=== PATIENT | female | born 1970 | race Caucasian/White ===

== ENCOUNTER 2018-06-03 17:02 | Emergency (ER) | payer OTHER ==
[~2018-06-03] VITALS: Ht 162.6 cm; Wt 90.9 kg
[~2018-06-03 17:02] MED LIST: CEPHALEXIN500 M1 PO; NO HOME MEDICATIONS
[2018-06-03 17:37] VITALS: TEMP 98.8
[2018-06-03 21:01] LABS: BASO % 0.3 % (0.0-2.0); EOS # 0.1 (0.0-0.7); EOS % 0.4 % (0-4.0); GRAN # 10.8 (1.4-6.5); GRAN % 80.7 % (42.2-75.2); HEMATOCRIT 40.7 % (37.0-47.0); HEMOGLOBIN 13.8 g/dl (12.5-16.0); LYMPH # 1.7 (1.2-3.4); LYMPH % 12.8 % (20.0-51.0); MEAN CELL VOLUME 98 fl (80.0-100.0); MEAN CORPUSCULAR HEMOGLOBIN 33 pg (27.0-31.0); MEAN CORPUSCULAR HGB CONC 34 g/dl (33.0-37.0); MONO # 0.7 (0.1-0.6); MONO % 5.4 % (1.7-9.3); PLATELET COUNT 316 K/mm3 (130-400); RED BLOOD COUNT 4.14 M/mm3 (4.10-5.30); REDCELL DISTRIBUTION WIDTH-CV 11.8 % (11.5-14.5)
[2018-06-03 21:12] LABS: ALANINE AMINOTRANSFERASE 28 U/L (9-52); ALBUMIN 4.2 gm/dL (3.5-5.0); ALKALINE PHOSPHATASE 92 U/L (50-136); ANION GAP 12 mmol/L (7-16); AST,SGOT 25 U/L (15-37); BILIRUBIN,TOTAL 0.5 mg/dL (0.0-1.0); BLOOD UREA NITROGEN 11 mg/dL (7-17); CALCIUM 8.7 mg/dL (8.4-10.2); CARBON DIOXIDE 22 mmol/L (22-30); CHLORIDE 100 mmol/L (98-107); CREATININE, serum 0.77 mg/dL (0.52-1.25); GLUCOSE 110 mg/dL (74-106); LIPASE 74 U/L (23-300); SODIUM 133 mmol/L (137-145); TOTAL PROTEIN 7.7 gm/dL (6.4-8.2)
[2018-06-03 21:41] LABS: TROPONIN-I < 0.012 ng/mL (0.000-0.035)
[2018-06-03] MEDS ORDERED: NORCO 325 MG-51 TAB PO (21:51)
[2018-06-03] MEDS ORDERED: DOXYCYCLINE HY100 MG PO (21:51)
[2018-06-03 22:03] VITALS: BP 107/61; PULSE 78
== END 2018-06-03 22:09 | disposition home or self-care (01) ==
LOC: COL.ER 17:02
PROVIDERS: Emergency Medicine
DX: L02.31 Cutaneous abscess of buttock (principal); F17.210 Nicotine dependence, cigarettes, uncomplicated
CPT/HCPCS: J3010

== ENCOUNTER → 2018-07-27 | Outpatient (CLI) | payer OTHER ==
[~2018-07-27] MED LIST changes: +DOXYCYCLINE HY100 MG PO; +NORCO 325 MG-51 TAB PO
== END ==
LOC: MC.RAD 11:14
DX: Z12.31 Encounter for screening mammogram for malignant neoplasm of breast (principal)

== ENCOUNTER 2019-04-08 09:37 | Emergency (ER) | payer OTHER ==
[~2019-04-08] VITALS: Ht 165.1 cm; Wt 90.9 kg
[2019-04-08 09:49] VITALS: TEMP 98
[2019-04-08] MEDS ORDERED: CELEXA40 MG PO (09:51)
[2019-04-08] MEDS ORDERED: PRIL40 PO (09:52)
[2019-04-08 10:38] LABS: BASO # 0.1 (0.0-0.2); EOS # 0.1 (0.0-0.7); GRAN # 3.7 (1.4-6.5); GRAN % 56.1 % (42.2-75.2); HEMATOCRIT 41.5 % (37.0-47.0); HEMOGLOBIN 14.3 g/dl (12.5-16.0); LYMPH # 2.4 (1.2-3.4); LYMPH % 35.2 % (20.0-51.0); MEAN CELL VOLUME 99 fl (80.0-100.0); MEAN CORPUSCULAR HEMOGLOBIN 34 pg (27.0-31.0); MEAN CORPUSCULAR HGB CONC 35 g/dl (33.0-37.0); MEAN PLATELET VOLUME 9.3 fl (7.4-10.4); MONO # 0.4 (0.1-0.6); MONO % 6.3 % (1.7-9.3); PLATELET COUNT 261 K/mm3 (130-400); REDCELL DISTRIBUTION WIDTH-CV 11.7 % (11.5-14.5)
[2019-04-08 10:51] LABS: ALANINE AMINOTRANSFERASE 24 U/L (9-52); ALBUMIN 4.3 gm/dL (3.5-5.0); ALKALINE PHOSPHATASE 100 U/L (50-136); ANION GAP 9 mmol/L (7-16); AST,SGOT 31 U/L (15-37); BILIRUBIN,TOTAL 0.4 mg/dL (0.0-1.0); BLOOD UREA NITROGEN 10 mg/dL (7-17); CALCIUM 8.9 mg/dL (8.4-10.2); CARBON DIOXIDE 24 mmol/L (22-30); CHLORIDE 106 mmol/L (98-107); CREATININE, serum 0.64 (0.52-1.25); GLUCOSE 89 mg/dL (74-106); LIPASE 139 U/L (23-300); SODIUM 139 mmol/L (137-145); TOTAL PROTEIN 7.6 gm/dL (6.4-8.2)
[2019-04-08 11:13] LABS: TROPONIN-I < 0.012 ng/mL (0.000-0.035)
[2019-04-08 14:42] VITALS: BP 137/96; PULSE 57
== END 2019-04-08 14:46 | disposition home or self-care (01) ==
LOC: COL.ER 09:37
PROVIDERS: Emergency Medicine
DX: R07.89 Other chest pain (principal); F17.210 Nicotine dependence, cigarettes, uncomplicated; K21.9 Gastro-esophageal reflux disease without esophagitis
CPT/HCPCS: J7030

== ENCOUNTER → 2019-11-14 | Outpatient (CLI) | payer OTHER ==
[~2019-11-14] MED LIST changes: +CELEXA40 MG PO; +PRIL40 PO
== END ==
LOC: MC.RAD 13:00
DX: Z12.31 Encounter for screening mammogram for malignant neoplasm of breast (principal); N64.89 Other specified disorders of breast

== ENCOUNTER 2020-07-22 10:22 | Emergency (ER) | payer OTHER ==
[~2020-07-22] VITALS: Ht 167.6 cm; Wt 92.3 kg
[2020-07-22 11:03] VITALS: TEMP 98.2
[2020-07-22 11:24] LABS: BASO # 0.1 (0.0-0.2); BASO % 0.6 % (0.0-2.0); EOS # 0.1 (0.0-0.7); EOS % 0.4 % (0-4.0); GRAN # 7.8 (1.4-6.5); GRAN % 69.6 % (42.2-75.2); HEMATOCRIT 44.8 % (37.0-47.0); HEMOGLOBIN 15.3 g/dl (12.5-16.0); LYMPH # 2.6 (1.2-3.4); MEAN CELL VOLUME 100 fl (80.0-100.0); MEAN CORPUSCULAR HEMOGLOBIN 34 pg (27.0-31.0); MEAN CORPUSCULAR HGB CONC 34 g/dl (33.0-37.0); MEAN PLATELET VOLUME 9.4 fl (7.4-10.4); MONO # 0.7 (0.1-0.6); PLATELET COUNT 301 K/mm3 (130-400); RED BLOOD COUNT 4.49 M/mm3 (4.10-5.30); REDCELL DISTRIBUTION WIDTH-CV 11.5 % (11.5-14.5)
[2020-07-22 11:37] LABS: ALBUMIN 4.6 gm/dL (3.5-5.0); BILIRUBIN,TOTAL 0.7 mg/dL (0.0-1.0); C-REACTIVE PROTEIN 1.1 mg/dL (0.0-0.9); CALCIUM 9.4 mg/dL (8.4-10.2); CREATININE, serum 0.53 (0.52-1.25); POTASSIUM 4.1 mmol/L (3.4-5.0); TOTAL PROTEIN 8.4 gm/dL (6.4-8.2)
[2020-07-22 11:41] LABS: COLLECTION METHOD CLEAN CATCH
[2020-07-22 11:48] LABS: MUCOUS Present /lpf; PH 6 (5-8); SQUAMOUS EPITHELIAL 0-2 /hpf; URINE APPEARANCE Clear; URINE BACTERIA None Seen /hpf; URINE BILIRUBIN Negative (NEGATIVE); URINE BLOOD 1+ (NEGATIVE); URINE COLOR Yellow; URINE GLUCOSE Negative (NEGATIVE); URINE KETONE Negative (NEGATIVE); URINE LEUKOCYTE ESTERASE Negative (NEGATIVE); URINE NITRATE Negative (NEGATIVE); URINE PROTEIN(semi-quant) Negative (NEGATIVE); URINE RBC 0-2 /hpf; URINE UROBILINOGEN Negative (NEGATIVE)
[2020-07-22] MEDS ORDERED: ZOFRAN ODT4 MG PO (13:05)
[2020-07-22] MEDS ORDERED: AMOXICILLIN 8751 TAB PO (13:05)
[2020-07-22 13:15] VITALS: BP 145/77; PULSE 70
== END 2020-07-22 13:17 | disposition home or self-care (01) ==
LOC: COL.ER 10:22
PROVIDERS: Physician Assistant
DX: K57.32 Diverticulitis of large intestine without perforation or abscess without bleeding (principal); R16.0 Hepatomegaly, not elsewhere classified; I10 Essential (primary) hypertension; F17.210 Nicotine dependence, cigarettes, uncomplicated
CPT/HCPCS: J1885; J2405; Q9967

== ENCOUNTER → 2020-07-30 | Outpatient (CLI) | payer OTHER ==
[~2020-07-30] MED LIST changes: +AMOXICILLIN 8751 TAB PO; +ZOFRAN ODT4 MG PO
== END ==
LOC: COL.RAD 07:04
DX: K76.0 Fatty (change of) liver, not elsewhere classified (principal)

== ENCOUNTER 2020-09-13 05:58 | Day surgery (SDC) | payer OTHER ==
[~2020-09-13] VITALS: Ht 167.6 cm; Wt 91.3 kg
[2020-09-13 06:27] VITALS: BP 126/75; PULSE 66; TEMP 97.7
--- NOTE | 2020-09-13 06:39 | NUR ---
TO RM 8 AT 0600- CALL LIGHT IN REACH SISTER AT BEDSIDE.
[2020-09-13] MEDS ORDERED: NORCO 325 MG-51 TAB PO (08:40)
[2020-09-13 09:15] VITALS: BP 115/75; PULSE 70
--- NOTE | 2020-09-13 09:15 | NUR ---
TO RM 8 PER CART FROM PACU. ALERT ORIENTED X3, TALKING TO STAFF AND SISTER. C/O PAIN / AT CURRENT TIME. RECEIVED WATER. BANDAIDES OVER INCISIONS CLEAN DRY INTACT.
[2020-09-13 09:30] VITALS: BP 116/73; PULSE 63; TEMP 98
[2020-09-13 09:45] VITALS: BP 133/78; PULSE 82
--- NOTE | 2020-09-13 09:45 | NUR ---
RECEIVED APPLE SAUCE
--- NOTE | 2020-09-13 10:05 | NUR ---
AMBULATED TO BATHROOM AND VOIDED. AMBULATED BACK TO AND C/O INCREASED PAIN 5-09/05- RECEIVED NORCO 5MG 1 TAB.
--- NOTE | 2020-09-13 10:15 | NUR ---
ATE 100% AND TOLERATED WELL
--- NOTE | 2020-09-13 10:20 | NUR ---
RECEIVED DISCHARGE INSTRUCTIONS AND VERBALIZED UNDERSTANDING. DISCONTINUED IV AND INT- CATHETER INTACT. PATIENT GETTING DRESSED AND CALLED SISTER FOR RIDE.
--- NOTE | 2020-09-13 10:35 | NUR ---
DISCHARGED PER BY NURSING STAF TO PRIVATE CAR IN CARE OF SISTER MICHAEL.
== END 2020-09-13 11:12 | disposition home or self-care (01) ==
LOC: SDCO 05:58
DX: K43.9 Ventral hernia without obstruction or gangrene (principal); K21.9 Gastro-esophageal reflux disease without esophagitis; F32.9 Major depressive disorder, single episode, unspecified; F17.210 Nicotine dependence, cigarettes, uncomplicated; Z79.899 Other long term (current) drug therapy
CPT/HCPCS: J0690; J1100; J1170; J1885; J2405; J2704; J3010; J7120